=== PATIENT | male | born 1990 | race Caucasian/White ===

== ENCOUNTER 2022-06-14 00:04 | Emergency (ER) | payer MEDICAID ==
[2022-06-14] MEDS ORDERED: KETOROLAC 30 MG/ML VIAL IM STA (00:56)
--- NOTE | 2022-06-14 02:16 | ED Physician Documentation ---
History of Present Illness - Stated complaint Stated Complaint: BACK/ABD PX - Chief complaint Chief Complaint: Trauma Ch/Bk - History obtained from History obtained from: Patient - Additonal information Additional information: 32-year-old man presents with right lower rib cage pain after falling down 3 or 4 days ago. Patient states that he has been constipated as well and yesterday had a small amount of blood on his bowel movement.He has been taking a laxative as of yesterday with minimal relief. Review of Systems Musculoskeletal: reports: Other (rib pain) PD PAST MEDICAL HISTORY - Past Surgical History Past Surgical History: No - Present Medications Home Medications: Ambulatory Orders Medication Instructions Recorded Confirmed Ketorolac [Toradol] 10 mg PO Q6H PRN #30 tablet 06/14/22 Sennosides/Docusate Sodium 1 each PO QDAC PRN #30 tablet 06/14/22 [Senna-Docusate Sodium Tablet] polyethylene glycoL 3350 [Miralax] 17 gm PO DAILY #30 packet 06/14/22 - Allergies Allergies/Adverse Reactions: Allergies Allergy/AdvReac Type Severity Reaction Status Date / Time No Known Drug Allergies Allergy Verified 06/14/22 00:11 - Social History Does the pt smoke?: No Smoking Status: Never smoker Does the pt drink ETOH?: Yes Does the pt have substance abuse?: No - Immunizations Immunizations are current?: Yes PD ED PE NORMAL - Vitals Vital signs reviewed: Yes - General General: Alert and oriented X 3, No acute distress, Well developed/nourished - HEENT HEENT: Atraumatic, PERRL, EOMI - Neck Neck: Supple, no meningeal sign - Cardiac Cardiac: RRR - Respiratory Respiratory: No respiratory distress, Clear bilaterally - Abdomen Abdomen: Non tender, Non distended - Back Back: Other (discomfort along posterior R lower ribcage) - Derm Derm: Normal color, Warm and dry - Neuro Neuro: Alert and oriented X 3, No motor deficit, No sensory deficit Results - Vitals Vitals: Vital Signs - 24 hr 06/14/22 06/14/22 00:07 00:11 Temperature 36.5 C Heart Rate 108 H 93 Respiratory 18 16 Rate Blood Pressure 158/102 H 142/89 H O2 Saturation 98 96 Oxygen O2 Source Room air PD MEDICAL DECISION MAKING - ED course ED course: 32-year-old man presents with right lower rib cage pain improved with Tylenol over the course of his ED visit. Also with constipation and reports that he had a small amount of blood on his stool. Exam reveals hemorrhoids. Patient jonathan wood provided prescription sent for Toradol and bowel regimen. Return precautions given. He will follow-up with his primary doctor. Departure - Departure Disposition: 01 Home, Self Care Clinical Impression: Constipation, Hemorrhoids Condition: Good Instructions: ED Constipation Prescriptions: polyethylene glycoL 3350 [Miralax] 17 gm PO DAILY #30 packet Sennosides/Docusate Sodium [Senna-Docusate Sodium Tablet] 1 each PO QDAC PRN #30 tablet PRN Reason: Constipation Ketorolac [Toradol] 10 mg PO Q6H PRN #30 tablet PRN Reason: Pain Comments: You are seen in the emergency department for evaluation of rib pain and constipation as well as some blood in the stool. The x-ray did not show a break in the bone. You have hemorrhoids That can cause small amount of bleeding. I am sending a prescription for Toradol, and anti-inflammatory pain medication which was given to you in the emergency department, as well as a laxative regimen to treat your constipation. Please follow-up with your primary doctor for further management of your constipation.Return to the emergency department if you have any new or worsening symptoms or other concerns.
[2022-06-14 03:00] VITALS: BP 134/86
--- NOTE | 2022-06-14 08:28 | XRAY Report ---
PROCEDURE: Chest 2 View X-Ray INDICATIONS: R lower rib pain TECHNIQUE: 2 view(s) of the chest. COMPARISON: None. FINDINGS: Surgical changes and devices: None. Lungs and pleura: No pleural effusions or pneumothorax. Lungs are clear. Mediastinum: Mediastinal contours are normal. Heart size is normal. Bones and chest wall: No suspicious bony abnormalities. Soft tissues appear unremarkable. IMPRESSION: No acute pulmonary process. Reviewed by: Veronique Kenny MD on 06/14/2022 8:26 AM PDT Approved by: Veronique Kenny MD on 06/14/2022 8:26 AM PDT Station ID: [id number]
== END 2022-06-14 02:59 | disposition home or self-care (01) ==
LOC: ED 00:04
DX: K59.00 Constipation, unspecified (principal); K64.9 Unspecified hemorrhoids
CPT/HCPCS: 96372; 99281; 99283

== ENCOUNTER 2022-09-12 17:39 | Emergency (ER) | payer MEDICAID ==
[2022-09-12] MEDS ORDERED: TETANUS/DIPHTHERIA/PERTUSSIS 0.5 ML SYRINGE IM ONE (18:38)
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
--- NOTE | 2022-09-12 19:08 | XRAY Report ---
PROCEDURE: Hand 3 View RT INDICATIONS: Hand inj, TECHNIQUE: 3 views of the hand(s) acquired. COMPARISON: None FINDINGS: Bones: No fractures or dislocations. No suspicious bony lesions. Soft tissues: No suspicious soft tissue calcifications. IMPRESSION: No acute fracture. No osseous lesion. If symptoms and/or clinical suspicion for pathology continue, f urther assessment with repeat plain films, or advanced imaging (e.g., CT, MRI, or bone scan) is recom mended for further assessment. Reviewed by: Jen Hough MD on 09/12/2022 7:07 PM PST Approved by: Jen Hough MD on 09/12/2022 7:07 PM PST Station ID: [id number]
[2022-09-12 19:25] VITALS: BP 148/84
== END 2022-09-12 19:25 | disposition home or self-care (01) ==
LOC: ED 17:39
DX: S61.214A Laceration without foreign body of right ring finger without damage to nail, initial encounter (principal); W20.8XXA Other cause of strike by thrown, projected or falling object, initial encounter; Z23 Encounter for immunization; Z71.85 Encounter for immunization safety counseling
CPT/HCPCS: 12001; 90471; 99283

== ENCOUNTER 2023-01-05 19:28 | Emergency (ER) | payer MEDICAID ==
--- NOTE | 2023-01-05 20:05 | XRAY Report ---
PROCEDURE: Wrist 3 View RT INDICATIONS: PAIN/TENDERNESS R WRIST TECHNIQUE: 3 views of the wrist were acquired. COMPARISON: Correlation is made with the accompanying forearm plain films 01/05/2023, and the prior a nd plain films, 09/04/2022. FINDINGS: Bones: No fractures or dislocations. No suspicious bony lesions. Scaphoid view: Not done. Soft tissues: No suspicious soft tissue calcifications or masses. IMPRESSION: No displaced fracture can be seen on these images. If this patient has snuffbox tenderness, please return the patient to radiology for an additional sca phoid view, which will be performed at no additional charge to the patient, and an addendum issued to this report. Reviewed by: Oswaldo Abebe MD on 01/05/2023 7:04 PM [facility] Approved by: Oswaldo Abebe MD on 01/05/2023 7:04 PM [facility] Station ID: [id number]
--- NOTE | 2023-01-05 20:06 | XRAY Report ---
PROCEDURE: Forearm RT INDICATIONS: SWELLING/PAIN/TENDERNESS R FOREARM TECHNIQUE: 2 views of the forearm were acquired. COMPARISON: Correlation is made with the accompanying wrist plain films, 01/05/2023 and the prior rig hand plain films, 09/04/2022. FINDINGS: Bones: No fractures or dislocations. No suspicious bony lesions. Soft tissues: No suspicious soft tissue calcifications or masses. IMPRESSION: No acute bony abnormality. Reviewed by: Oswaldo Abebe MD on 01/05/2023 7:05 PM [facility] Approved by: Oswaldo Abebe MD on 01/05/2023 7:05 PM [facility] Station ID: [id number]
[2023-01-05 21:15] VITALS: BP 142/86
[2023-01-05] MEDS ORDERED: oxyCODONE 5 MG TABLET PO STA (21:27)
[2023-01-05] MEDS ORDERED: cephALEXin 250 MG CAPSULE PO STA (21:28)
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
== END 2023-01-05 21:48 | disposition home or self-care (01) ==
LOC: ED 19:28
DX: S50.11XA Contusion of right forearm, initial encounter (principal); S61.101A Unspecified open wound of right thumb with damage to nail, initial encounter; X58.XXXA Exposure to other specified factors, initial encounter; Y93.I9 Activity, other involving external motion
CPT/HCPCS: 64450; 73090; 73110; 99283; A9270

== ENCOUNTER 2023-08-06 19:56 | Emergency (ER) | payer MEDICAID ==
[2023-08-06] MEDS ORDERED: KETOROLAC 15 MG/ML VIAL IVP STA (19:58)
[2023-08-06] MEDS ORDERED: HYDROmorphone 1 MG/ML CARPUJECT IVP STA ×2 (19:58→21:10)
[2023-08-06] MEDS ORDERED: ceFAZolin 1 GM VIAL IVP STA (19:59)
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
[2023-08-06 20:15] LABS: BASOPHILS # (AUTO) 0.1 10^3/uL (0.0-0.1); BASOPHILS % (AUTO) 0.4 %; EOSINOPHILS # (AUTO) 0.2 10^3/uL (0.0-0.7); EOSINOPHILS % (AUTO) 1.4 %; HCT - HEMATOCRIT 50.5 % (42.0-52.0); HGB - HEMOGLOBIN 16.4 g/dL (14.0-18.0); LYMPHOCYTES # (AUTO) 3.3 10^3/uL (1.5-3.5); LYMPHOCYTES % (AUTO) 28.5 %; MEAN CORPUSCULAR HEMOGLOBIN 26.7 pg (27.0-31.0); MEAN CORPUSCULAR HGB CONC 32.5 g/dL (32.0-36.0); MEAN CORPUSCULAR VOLUME 82.2 fL (80.0-94.0); MEAN PLATELET VOLUME 8.2 fL (7.4-11.4); MONOCYTES # (AUTO) 0.9 10^3/uL (0.0-1.0); MONOCYTES % (AUTO) 8.3 %; PLT - PLATELET COUNT 283 10^3/uL (130-450); RED BLOOD COUNT 6.14 10^6/uL (4.70-6.10); RED CELL DISTRIBUTION WIDTH 13.6 % (12.0-15.0); WHITE BLOOD COUNT 11.4 x10^3/uL (4.8-10.8)
[2023-08-06 20:17] VITALS: O2SAT 96
[2023-08-06 20:30] LABS: ETOH - ETHANOL < 10.0 mg/dL
[2023-08-06 20:31] LABS: INR 1.1 (0.8-1.2); PT - PROTHROMBIN TIME 11.6 secs (9.9-12.6)
[2023-08-06 20:35] LABS: BUN - BLOOD UREA NITROGEN 18 mg/dL (6-20); CALCIUM 10.1 mg/dL (8.5-10.3); CARBON DIOXIDE - CO2 28 mmol/L (21-32); CHLORIDE 105 mmol/L (101-111); CREATININE 1.2 mg/dL (0.6-1.3); GFR - MDRD 69 (>89); GLUCOSE 109 mg/dL (74-104); POTASSIUM 4.1 mmol/L (3.5-4.5); SODIUM 140 mmol/L (135-145)
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
[2023-08-06] MEDS ORDERED: oxyCODONE/ACET 5/325 Prepack 4 PO STA (21:48)
[2023-08-06] MEDS ORDERED: CEPHALEXIN 250 MG Prepack 8 CAP BOTTLE PO STA (21:48)
[2023-08-06 22:45] VITALS: BP 136/98
== END 2023-08-06 22:41 | disposition home or self-care (01) ==
LOC: ED 19:56
DX: S62.317B Displaced fracture of base of fifth metacarpal bone, left hand, initial encounter for open fracture (principal); W34.00XA Accidental discharge from unspecified firearms or gun, initial encounter
CPT/HCPCS: 29125; 36415; 73130; 80048; 80320; 85025; 85610; 96374; 96375; 99284; J1170

== ENCOUNTER 2023-08-12 08:00 | Outpatient (CLI) | payer MEDICAID ==
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
== END 2023-08-12 23:59 | disposition home or self-care (01) ==
LOC: DI.WOS 08:00
PROVIDERS: ATTEND Orthopaedic Surgery
DX: S62.317D Displaced fracture of base of fifth metacarpal bone, left hand, subsequent encounter for fracture with routine healing (principal)

== ENCOUNTER 2023-08-27 08:00 | Outpatient (CLI) | payer MEDICAID ==
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
== END 2023-08-27 23:59 | disposition home or self-care (01) ==
LOC: DI.WOS 08:00
PROVIDERS: ATTEND Orthopaedic Surgery
DX: S62.212D Bennett's fracture, left hand, subsequent encounter for fracture with routine healing (principal)

== ENCOUNTER 2023-10-01 14:30 | Outpatient (CLI) | payer MEDICAID ==
--- NOTE | 2023-10-01 18:12 | XRAY Report ---
PROCEDURE: Hand 3 View LT INDICATIONS: LEFT HAND FRACTURE TECHNIQUE: 3 views of the hand(s) acquired. COMPARISON: 08/27/2023 and 08/12/2023. FINDINGS: Bones: Comminuted fracture involving fifth metacarpal bases is again seen with interval further heal ing at fracture site. Small dorsally displaced fracture fragment is again seen and unchanged. No new fracture or dislocation. Left hand alignment is unchanged. No suspicious bony lesions. Soft tissues: No suspicious soft tissue calcifications or masses. IMPRESSION: Interval further healing of fifth metacarpal base comminuted fracture side with stable left hand alig nment. No new fracture or dislocation. Reviewed by: Bay Odell MD on 10/01/2023 6:10 PM PST Approved by: Bay Odell MD on 10/01/2023 6:10 PM PST Station ID: [id number]
== END 2023-10-01 23:59 | disposition home or self-care (01) ==
LOC: DI.WOS 14:30
PROVIDERS: ATTEND Orthopaedic Surgery
DX: S62.317D Displaced fracture of base of fifth metacarpal bone, left hand, subsequent encounter for fracture with routine healing (principal)